=== PATIENT | female | born 1990 | race Caucasian/White ===

== ENCOUNTER 2018-07-28 17:48 | Emergency (ER) | payer SELFPAY ==
[2018-07-28 18:04] VITALS: BP 117/60; PULSE 75; TEMP 98.9; BMI 21.9
--- NOTE | 2018-07-28 18:06 | PDOC ---
Rapid Medical Evaluation Time Seen by Provider: 07/28/18 18:01 Medical Evaluation: 07/28/18 18:01 I have performed a brief in-person evaluation of this patient. The patient presents with a chief complaint of: abd cramping, + home test today, + vagnial spotting X 1wk. LMP 06/02/18. Pertinent physical exam findings:none I have ordered the following:labs, sono The patient will proceed to the ED for further evaluation. 07/28/18 18:05 Discharge Disposition - Diagnosis Threatened - Referrals - Patient Instructions - Post Discharge Activity
[2018-07-28 19:54] LABS: URINE APPEARANCE CLEAR; URINE BILIRUBIN NEGATIVE (<2.0 mg/dL); URINE COLOR STRAW; URINE GLUCOSE (UA) NEGATIVE (NEGATIVE); URINE KETONE NEGATIVE (NEGATIVE); URINE LEUK ESTERASE NEGATIVE (NEGATIVE); URINE NITRITE NEGATIVE (NEGATIVE); URINE PROTEIN NEGATIVE (NEGATIVE); URINE UROBILINOGEN NEGATIVE mg/dL (0.2-1.0)
--- NOTE | 2018-07-28 20:37 | PDOC ---
History of Present Illness - General History Source: Patient Exam Limitations: No Limitations - History of Present Illness Initial Comments: 07/28/18 20:44 The patient is a 27 year old female, [id number], with no other significant past medical history, who presents to the emergency department for concern of vaginal bleeding in . She states she noticed mild vaginal spotting of red blood last week with associated dizziness and breast tenderness. She states that on Friday she took an at home test which was positive. She denies any vaginal bleeding since. She denies vaginal bleeding or abdominal cramping/pain today. She states her LMP was 07/03/18 without complication. She reports persistent breast tenderness and intermittent dizziness with changing positions. The patient denies chest pain, shortness of breath, headache. The patient denies fever, chills, nausea, vomit, diarrhea and constipation. The patient denies dysuria, frequency, urgency and hematuria. Allergies: NKDA Past surgical history: none Social history: denies etoh and illicit drug use NEWS INTERN: unknown name from the [place] <Simran Nazario - Last Filed: 07/28/18 20:44> <Azul Gabriel - Last Filed: 07/28/18 21:57> - General Chief Complaint: Vaginal Bleeding Stated Complaint: Vaginal Bleeding Time Seen by Provider: 07/28/18 18:01 Past History <Simran Nazario - Last Filed: 07/28/18 20:44> - Past Medical History COPD: No - Suicide/Smoking/Psychosocial Hx Smoking History: Never smoked Have you smoked in the past 12 months: No Information on smoking cessation initiated: No Hx Alcohol Use: No Drug/Substance Use Hx: No <Azul Gabriel - Last Filed: 07/28/18 21:57> - Past Medical History Allergies/Adverse Reactions: Allergies Allergy/AdvReac Type Severity Reaction Status Date / Time No Known Allergies Allergy Verified 07/28/18 18:04 Home Medications: Ambulatory Orders NK [No Known Home Medication] 07/28/18 Review of Systems - Review of Systems Able to Perform ROS?: Yes Comments:: 07/28/18 20:44 CONSTITUTIONAL: Absent: fever, no chills, no fatigue EYES: Absent: visual changes ENT: Absent: ear pain, no sore throat CARDIOVASCULAR: Absent: chest pain, no palpitations RESPIRATORY: Absent: cough, no SOB GI: Absent: abdominal pain, no nausea, no vomiting, no constipation, no diarrhea GENITOURINARY: Absent: dysuria, no frequency, no hematuria MUSCULOSKELETAL: (+) breast tenderness. Absent: back pain, no arthralgia, no myalgia SKIN: Absent: rash NEURO: (+) dizziness. Absent: headache <Simran Nazario - Last Filed: 07/28/18 20:44> *Physical Exam - Vital Signs Last Vital Signs Temp Pulse Resp BP Pulse Ox 98.9 F 75 16 117/60 100 07/28/18 18:02 07/28/18 18:02 07/28/18 18:02 07/28/18 18:02 07/28/18 18:02 - Physical Exam Comments: 07/28/18 20:45 GENERAL: Well-appearing, well-nourished. No apparent distress. HEENT: Normocephalic, atraumatic. PERRL, EOM intact. CARDIOVASCULAR: Normal S1, S2. Regular rate and rhythm. PULMONARY: Clear to auscultation bilaterally. ABDOMEN: Soft, non-distended, non-tender. EXTREMITIES: Normal ROM in all four extremities. No gross deformities. SKIN: Warm, dry. No rash NEUROLOGICAL: No focal neurological deficits. <Simran Nazario - Last Filed: 07/28/18 20:44> - Vital Signs Last Vital Signs Temp Pulse Resp BP Pulse Ox 98.9 F 75 16 117/60 100 07/28/18 18:02 07/28/18 18:02 07/28/18 18:02 07/28/18 18:02 07/28/18 18:02 <Azul Gabriel - Last Filed: 07/28/18 21:57> ED Treatment Course - ADDITIONAL ORDERS Additional order review: Laboratory Results 07/28/18 07/28/18 19:50 18:07 Beta HCG, Quant 416.4 Urine Color Straw Urine Appearance Clear Urine pH 6.0 Ur Specific [place] 1.004 Urine Protein Negative Urine Glucose (UA) Negative Urine Ketones Negative Urine Blood Negative Urine Nitrite Negative Urine Bilirubin Negative Urine Urobilinogen Negative Ur Leukocyte Esterase Negative <Simran Nazario - Last Filed: 07/28/18 20:44> - ADDITIONAL ORDERS Additional order review: Laboratory Results 07/28/18 07/28/18 19:50 18:07 Beta HCG, Quant 416.4 Urine Color Straw Urine Appearance Clear Urine pH 6.0 Ur Specific [place]ye 1.004 Urine Protein Negative Urine Glucose (UA) Negative Urine Ketones Negative Urine Blood Negative Urine Nitrite Negative Urine Bilirubin Negative Urine Urobilinogen Negative Ur Leukocyte Esterase Negative <Azul Gabriel - Last Filed: 07/28/18 21:57> Medical Decision Making - Medical Decision Making 07/28/18 20:37 bhcg only 416 pelvic US no IUP seen ,there is rt complex cyst, no free fluid imp threatened AB vs ectopic vs early <Azul Gabriel - Last Filed: 07/28/18 21:57> *DC/Admit/Observation/Transfer - Attestations Scribe Attestion: 07/28/18 20:45 Documentation prepared by Simran Nazario, acting as clinical medical assistant for Azul Gabriel MD <Simran Nazario - Last Filed: 07/28/18 20:44> <Azul Gabriel - Last Filed: 07/28/18 21:57> Diagnosis at time of Disposition: Threatened - Discharge Dispostion Disposition: HOME Condition at time of disposition: Stable - Referrals Referrals: Robby Morin MD [Staff Physician] - - Patient Instructions Printed Discharge Instructions: DI for Threatened Additional Instructions: You have a positive blood test of 416 but there is no evidence of intrauterine on ultrasound and YOU MUST have a repeat bhcg in 48 hours to see if the bhcg is increasing This could be a very early ,a miscarriage or an ectopic . Repeating the bhcg in 48 hours is very important to determine what is happening
== END 2018-07-28 22:00 | disposition home or self-care (01) ==
LOC: JER 17:48
DX: O26.891 Other specified pregnancy related conditions, first trimester (principal); Z3A.00 Weeks of gestation of pregnancy not specified; O20.0 Threatened abortion
CPT/HCPCS: 36415; 76830-TC; 81003; 84702; 86850; 86900; 86901; 99282-25

== ENCOUNTER 2018-08-27 11:25 | Emergency (ER) | payer OTHER ==
[2018-08-27 11:45] VITALS: BP 106/73; PULSE 93; TEMP 98.5; BMI 22.1
[2018-08-27 12:50] LABS: URINE APPEARANCE CLEAR; URINE BILIRUBIN NEGATIVE (<2.0 mg/dL); URINE COLOR YELLOW; URINE GLUCOSE (UA) NEGATIVE (NEGATIVE); URINE KETONE NEGATIVE (NEGATIVE); URINE LEUK ESTERASE NEGATIVE (NEGATIVE); URINE NITRITE NEGATIVE (NEGATIVE); URINE PROTEIN NEGATIVE (NEGATIVE); URINE UROBILINOGEN NEGATIVE mg/dL (0.2-1.0)
[2018-08-27] MEDS ORDERED: ONDANSETRON 4 MG/2 ML VIAL ONE (12:58)
[2018-08-27 13:02] LABS: BASO % 0.6 % (0-2.0); EOS % 0.7 % (0-4.5); HEMATOCRIT 40.1 % (32.4-45.2); HEMOGLOBIN 13.6 GM/dL (10.7-15.3); MCH 29.7 pg (25.7-33.7); MEAN CELL VOLUME 87.4 fl (80-96); MONO % 6.6 % (3.8-10.2); NEUT % 70.1 % (42.8-82.8); PLATELET COUNT 278 K/MM3 (134-434); RBC 4.59 M/mm3 (3.60-5.2); RDW 15.2 % (11.6-15.6)
--- NOTE | 2018-08-27 13:23 | PDOC ---
History of Present Illness - General Chief Complaint: Nausea/Vomiting Stated Complaint: NAUSEA/VOMITING (8 WKS ) Time Seen by Provider: 08/27/18 12:15 History Source: Patient Exam Limitations: No Limitations - History of Present Illness Travel History: No Initial Comments: 08/27/18 13:23 Patient came to emergency department for nausea and intermittent vomiting, and general feelings of malaise and dehydration. LMP was June 30, and has known , uncertain as to date however thinks is someplace between 5 and 7 weeks. Has first visit September 06. States early had been going uneventfully until last week when she started the coming nauseous and since then has worsened to where she is unable to tolerate anything but apple juice. Denies fever, any URI symptoms, no problems with bowel or bladder. No vaginal bleeding or abdominal cramping. 08/27/18 13:24 Timing/Duration: reports: constant, getting worse Quality: reports: mild Pain Radiation: reports: no radiation Aggravating Factors: improves with: None Past History - Travel Traveled outside of the country in the last 30 days: No Close contact w/someone who was outside of country & ill: No - Past Medical History Allergies/Adverse Reactions: Allergies Allergy/AdvReac Type Severity Reaction Status Date / Time No Known Allergies Allergy Verified 08/27/18 11:41 COPD: No - Immunization History Immunization Up to Date: Yes - Suicide/Smoking/Psychosocial Hx Smoking History: Never smoked Have you smoked in the past 12 months: No Information on smoking cessation initiated: No Hx Alcohol Use: No Drug/Substance Use Hx: No Substance Use Type: None Review of Systems - Review of Systems Able to Perform ROS?: Yes Is the patient limited Khmer proficient: Yes Constitutional: Yes: Symptoms Reported, See HPI, Loss of Appetite, Malaise. No : Fever HEENTM: Yes: See HPI. No: Symptoms Reported Respiratory: Yes: See HPI. No: Symptoms reported ABD/GI: Yes: Symptoms Reported, See HPI, Nausea. No: Constipated, Diarrhea : No: Symptoms Reported Integumentary: Yes: See HPI. No: Symptoms Reported Neurological: Yes: Symptoms reported, See HPI, Headache All Other Systems: Reviewed and Negative *Physical Exam - Vital Signs Last Vital Signs Temp Pulse Resp BP Pulse Ox 98.5 F 93 H 16 106/73 97 08/27/18 11:42 08/27/18 11:42 08/27/18 11:42 08/27/18 11:42 08/27/18 11:42 - Physical Exam General Appearance: Yes: Nourished, Appropriately Dressed, Apparent Distress, Mild Distress HEENT: positive: WILFREDO, Normal ENT Inspection, Normal Voice, TMs Normal, Pharynx Normal Neck: positive: Supple. negative: Tender, Lymphadenopathy (R), Lymphadenopathy (L) Respiratory/Chest: positive: Lungs Clear, Normal Breath Sounds Gastrointestinal/Abdominal: positive: Normal Bowel Sounds, Tender (mild tenderness but without rebound or guarding), Soft. negative: Distended, Guarding, Rebound Musculoskeletal: positive: Normal Inspection Extremity: positive: Normal Capillary Refill, Normal Inspection, Normal Range of Motion Integumentary: positive: Normal Color, Dry, Warm, Pale Neurologic: positive: rail switchman II-XII NML intact, Fully Oriented, Alert, Normal Mood/ Affect, Normal Response, Motor Strength 03/28 ED Treatment Course - LABORATORY CBC & Chemistry Diagram: 08/27/18 12:55 08/27/18 12:55 Progress Note - Progress Note Progress Note: Early with nauseous/morning sickness. Case was discussed with Dr. Johnson whom she has appointment with next week. She recommends Zofran, fluids and will follow her up with appointment Medical Decision Making - Medical Decision Making 08/27/18 14:25 Much improved after 1 L of IV fluid and Zofran. Patient feels hungry and is ready for discharge. Will follow-up with Dr. Johnson as planned next week *DC/Admit/Observation/Transfer Diagnosis at time of Disposition: Early stage of - Discharge Dispostion Disposition: HOME Condition at time of disposition: Stable Decision to Admit order: No - Referrals - Patient Instructions Printed Discharge Instructions: DI for Morning Sickness Additional Instructions: (Rest, drink lots of fluids: Teas, water, soups Claudine anuradha, carbonated beverages for the bubbles May try peppermint teas Avoid heavy , spicy or fatty foods until symptoms have resolved Continue [id number] medications for symptomatic relief Tylenol for fever and pain May use Zofran-one tablet dissolved on tongue as needed for nauseousness. May repeat times one every 8 hours Followup with private physician in one to 2 days as needed Return to emergency department for worsened symptoms, fevers, dehydration - Post Discharge Activity Forms/Work/School Notes: Back to Work
[2018-08-27] MEDS ORDERED: SODIUM CHLORIDE 1,000 ML IV ONE (13:27)
[2018-08-27 14:08] LABS: ALBUMIN 3.6 g/dl (3.4-5.0); ALK PHOS 53 U/L (45-117); ANION GAP 8 MMOL/L (8-16); BILIRUBIN,TOTAL 0.7 mg/dL (0.2-1); BLOOD UREA NITROGEN 7 mg/dL (7-18); CALCIUM 9.1 mg/dL (8.5-10.1); CHLORIDE 102 mmol/L (98-107); CO2 27 mmol/L (21-32); CREATININE 0.5 mg/dL (0.55-1.3); GLUCOSE,RANDOM 96 mg/dL (74-106); POTASSIUM 3.8 mmol/L (3.5-5.1); SGOT/AST 17 U/L (15-37); SGPT/ALT 18 U/L (13-61); SODIUM 136 mmol/L (136-145); TOT PROT 7.3 g/dl (6.4-8.2)
== END 2018-08-27 14:44 | disposition home or self-care (01) ==
LOC: JERFT 11:25
PROC: 3E0337Z Introduction of Electrolytic and Water Balance Substance into Peripheral Vein, Percutaneous Approach (ICD-10-PCS; principal; 2018-08-27)
DX: O26.891 Other specified pregnancy related conditions, first trimester (principal); O21.0 Mild hyperemesis gravidarum; Z3A.01 Less than 8 weeks gestation of pregnancy
CPT/HCPCS: 36415; 80053; 81003; 84702; 85025; 99281-25; J7030

== ENCOUNTER 2021-07-15 17:29 | Emergency (ER) | payer OTHER ==
[2021-07-15 17:34] VITALS: BP 111/73; PULSE 76; TEMP 97; BMI 23.2
[2021-07-15] MEDS ORDERED: IBUPROFEN 400 MG TABLET (FP) PO ONE ×2 (19:04→19:25)
== END 2021-07-15 20:43 | disposition home or self-care (01) ==
LOC: JER 17:29
PROC: 0H9AXZZ Drainage of Inguinal Skin, External Approach (ICD-10-PCS; principal; 2021-07-15)
DX: L02.214 Cutaneous abscess of groin (principal)
CPT/HCPCS: 99283-25